=== PATIENT | female | born 1990 | race African-American/Black ===

== ENCOUNTER 2016-11-11 11:17 | Emergency (ER) | payer OTHER ==
[~2016-11-11] VITALS: Ht 152.4 cm; Wt 68.0 kg
[~2016-11-11 11:17] MED LIST: APAP/CODEI12 MG/5 ML PO; AUGMENTIN 875875 MG PO; FLAGYL500 MG PO; HYCET 7.5 MG-3473 ML PO; IBUPROFEN 600600 M1 PO; IBUPROFEN 800800 M1; LORTAB 5 MG/5001 TAB PO; MACROBID 100 M100 M1 PO; NOHOMEMEDICATIONS; NORCO 5-325 TA1 EACH PO; PERCOCET 5-3251 EACH PO; PHENERGAN 25 MG25 M1 PO; PRENATAL TABLE1 EAC3 PO; TRAMADOL 50 MG50 MG PO; ULTRAM 50MG TAB50 MG PO; ZOFRAN ODT4 MG PO; ZPAK PO
[2016-11-11 11:48] LABS: HEMATOCRIT 38.8 % (37.0-47.0); HEMOGLOBIN 13.2 gm/dL (12.0-15.0); MANUAL DIFF YES; MCH 30.5 pg (26.0-34.0); MCHC 34.1 g/dL (28.0-37.0); MCV 89.5 fL (80.0-100.0); PLATELET COUNT 194 thou/uL (150-400); RBC 4.34 mil/uL (4.20-5.00); RDW 12.6 % (10.5-14.5); WBC 3.7 thou/uL (4.0-11.0)
[2016-11-11 11:53] LABS: URINE BILIRUBIN NEGATIVE (Negative); URINE BLOOD 1+ (Negative); URINE COLOR YELLOW; URINE GLUCOSE-RANDOM* NEGATIVE (Negative); URINE KETONES NEGATIVE (Negative); URINE LEUKOCYTES-REFLEX TRACE (Negative); URINE PROTEIN (DIPSTICK) TRACE (Negative); URINE SPECIFIC GRAVITY 1.025 (1.003-1.035)
[2016-11-11 11:55] VITALS: BP 115/78
[2016-11-11 12:02] LABS: CALCIUM 8.8 mg/dL (8.5-10.1); CREATININE 0.7 mg/dL (0.6-1.0); POTASSIUM 3.8 mmol/L (3.5-5.1)
[2016-11-11 12:07] LABS: ALBUMIN 3.7 g/dL (3.4-5.0); TOTAL BILIRUBIN 0.3 mg/dL (<0.1-1.0); TOTAL PROTEIN 7.9 g/dL (6.4-8.2)
[2016-11-11 12:11] LABS: SQUAMOUS >10 Many /LPF (0-3)
[2016-11-11 12:11] LABS: ABSOLUTE NEUTROPHILS 1.1 thou/uL (1.4-8.2); TOTAL CELL COUNT 100
[2016-11-11 12:12] LABS: CASTS None Seen /LPF (None Seen); CRYSTALS None Seen /LPF (None Seen); URINE RBC 3-10 Few /HPF (0-2); URINE WBC-REFLEX 6-15 Few /HPF (0-5)
[2016-11-11] MEDS ORDERED: CIPRO500 MG PO (12:29)
[2016-11-11] MEDS ORDERED: FLAGYL500 MG PO (12:29)
[2016-11-11] MEDS ORDERED: PHENAZOPYRIDIN200 M2 PO (12:29)
[2016-11-12 22:08] LABS: CHLAMYDIA TRACHOMATIS-PCR Negative (Negative); NEISSERIA GONORRHEA-PCR Negative (Negative)
== END 2016-11-11 12:51 | disposition home or self-care (01) ==
LOC: ER 11:17
PROVIDERS: Physician Assistant
DX: N30.00 Acute cystitis without hematuria (principal); N76.0 Acute vaginitis; Z88.6 Allergy status to analgesic agent; Z88.5 Allergy status to narcotic agent; Z91.018 Allergy to other foods; F10.99 Alcohol use, unspecified with unspecified alcohol-induced disorder